=== PATIENT | female | born 1980 | race Caucasian/White ===

== ENCOUNTER 2018-08-19 18:09 | Emergency (ER) | payer OTHER ==
[~2018-08-19] VITALS: Ht 160 cm; Wt 71.0 kg
[2018-08-19] MEDS ORDERED: predniSONE 10 MG TABLET PO ONE (18:15)
--- NOTE | 2018-08-19 18:16 | ED.ADGEN ---
Adult General Chief Complaint Chief Complaint ".. It feels like when I have strep.... my throat is red and White pus pockets and these nodes my neck are swollen... I had strep a lot when I was a kid... And then feeling Bad the Last Couple Days.".." My joints ache... I chavo hurt all over.. even my muscle hurt..." HPI HPI Patient is a 38 year old female who presents with above hx and complaints of pharyngitis, myalgia, arthralgia, and malaise.. Patient does have swollen tonsils with crypts and white pus pockets. Does have bilateral anterior chain adenopathy. Patient denies any history of immunosuppression. No history of travel or specific ill contacts. Patient normally healthy. Has not had strep for years. Patient normally follows with Dr. Alonso. She didn't receive flu vaccination this past fall. Review of Systems Review of Systems Constitutional: History of fever or chills [] Eyes: Denies change in visual acuity, redness, or eye pain [] HENT: Denies nasal congestion. History of sore throat [] Respiratory: Denies cough or shortness of breath [] Cardiovascular: No additional information not addressed in HPI [] GI: Denies abdominal pain, nausea, vomiting, bloody stools or diarrhea [] : Denies dysuria or hematuria [] Musculoskeletal: Denies back pain or joint pain [] Integument: Denies rash or skin lesions [] Neurologic: Denies headache, focal weakness or sensory changes [] Endocrine: Denies polyuria or polydipsia [] All other systems were reviewed and found to be within normal limits, except as documented in this note. Family History Family History Noncontributory Current Medications Current Medications Current Medications Medications (Trade) Dose Ordered Sig/Dudley Start Time Stop Time Status Last Admin Dose Admin Prednisone (Prednisone) 10 mg STK-MED ONCE 08/19/18 18:18 08/19/18 18:20 DC Allergies Allergies Allergies Coded Allergies Type Severity Reaction Last Updated Verified No Known Drug Allergies 08/19/18 No Physical Exam Physical Exam Constitutional: , moderately acute distress, non-toxic appearance. [] HENT: Normocephalic, atraumatic, bilateral external ears normal, oropharynx moist, injected pharynx, pus pockets and swollen pillars, no oral exudates, nose swollen turbinates. Eyes: PERRLA, EOMI, conjunctiva normal, no discharge. [] Neck: Normal range of motion, enlarged lymph nodes anterior chain with tenderness, supple, no stridor. [] Cardiovascular:Heart rate regular rhythm, no murmur [] Lungs & Thorax: Bilateral breath sounds equal at apex on auscultation [] Abdomen: Bowel sounds normal, soft, no tenderness, no masses, no pulsatile masses. [] Skin: Warm, dry, no erythema, no rash. [] Back: No tenderness, no CVA tenderness. [] Extremities: No tenderness, no cyanosis, no clubbing, ROM intact, no edema. [] Neurologic: Alert and oriented X 3, normal motor function, normal sensory function, no focal deficits noted. [] Psychologic: Affect anxious, judgement normal, mood normal. [] Current Patient Data Vital Signs Vital Signs Date Time Temp Pulse Resp B/P (MAP) Pulse Ox O2 Delivery O2 Flow Rate FiO2 08/19/18 18:25 98.4 104 20 98 Room Air Lab Results Laboratory Tests Test 08/19/18 18:17 Influenza Type A (Rapid) Negative (NEGATIVE) Influenza Type B (Rapid) Negative (NEGATIVE) Group A Streptococcus Rapid Negative (NEGATIVE) EKG EKG [] Radiology/Procedures Radiology/Procedures [] Course & Med Decision Making Course & Med Decision Making Pertinent Labs and Imaging studies reviewed. (See chart for details). Gargle with Listerine 4 times a day. Tylenol and ibuprofen for discomfort. Follow-up primary care. Return if any concerns. For marked discomfort Vicoprofen up 4 x day. Push fluids. Get adequate rest. [] Final Impression Final Impression 1. Pharyngitis[]- viral 2. Viral syndrome Dragon Disclaimer Dragon Disclaimer This electronic medical record was generated, in whole or in part, using a voice recognition dictation system. Dragon Disclaimer This chart was dictated in whole or in part using Voice Recognition software in a busy, high-work load, and often noisy Emergency Department environment. It may contain unintended and wholly unrecognized errors or omissions. Discharge Summary Visit Information Final Diagnosis Problems Medical Problems: (1) Pharyngitis Status: Acute Brief Hospital Course Allergies Allergies Coded Allergies Type Severity Reaction Last Updated Verified No Known Drug Allergies 08/19/18 No Vital Signs Vital Signs Date Time Temp Pulse Resp B/P (MAP) Pulse Ox O2 Delivery O2 Flow Rate FiO2 08/19/18 18:25 98.4 104 20 98 Room Air Lab Results Laboratory Tests Test 08/19/18 18:17 Influenza Type A (Rapid) Negative (NEGATIVE) Influenza Type B (Rapid) Negative (NEGATIVE) Group A Streptococcus Rapid Negative (NEGATIVE) Brief Hospital Course Ms. Lynne is a 38 old female who presented with viral pharyngitis and syndrome. Discharge Information Condition at Discharge: Improved, Stable Disposition/Orders: D/C to Home Dischare Medications Current Medications Prednisone (Prednisone) 50 mg 1X ONCE PO Last administered on 08/19/18at 18:24; Admin Dose 50 MG; Start 08/19/18 at 18:15; Stop 08/19/18 at 18:20; Status DC Prednisone (Prednisone) 10 mg STK-MED ONCE .ROUTE ; Start 08/19/18 at 18:18; Stop 08/19/18 at 18:20; Status DC Active Scripts Active Hydrocodone-Ibuprofen 7.5-200 (Hydrocodone/Ibuprofen) 1 Each Tablet 1 Tab PO PRN Q6HRS PRN SAMPSON KEYS MD Aug 19, 2018 18:16
[2018-08-19] MEDS ORDERED: predniSONE 10 MG TABLET ONE (18:18)
[2018-08-19 18:25] VITALS: BP 112/61
[2018-08-19] MEDS ORDERED: HYDR-1179 PO (18:27)
[2018-08-19 19:03] LABS: INFLUENZA A PATIENT NEGATIVE (NEGATIVE); INFLUENZA B PATIENT NEGATIVE (NEGATIVE)
== END 2018-08-19 19:15 | disposition home or self-care (01) ==
LOC: ER 18:09
DX: B34.9 Viral infection, unspecified (principal); J02.8 Acute pharyngitis due to other specified organisms; R59.9 Enlarged lymph nodes, unspecified
CPT/HCPCS: 87070; 87804; 87880; 99283; J7512

== ENCOUNTER → 2018-08-22 | Outpatient (CLI) | payer OTHER ==
[2018-08-19 18:25] VITALS: BP 112/61
[~2018-08-22] MED LIST: AMOX500C PO; HYDR-1179 PO; PRED20TA PO
--- NOTE | 2018-08-23 08:08 | RAD ---
Examination: 3 views of the cervical spine HISTORY: History of cervicalgia, bilateral upper extremity numbness COMPARISON: None available FINDINGS: The cervical vertebral body heights are maintained. No evidence of listhesis. The facets are well aligned. The spinolaminar line is maintained. No evidence of prevertebral soft tissue swelling. Mild intervertebral disc height loss identified in the cervical spine. IMPRESSION: Mild degenerative changes cervical spine. If pain persists recommend MRI for further evaluation. Electronically signed by: Fahad Baum MD (08/23/2018 8:03 AM) [facility]
== END | disposition home or self-care (01) ==
LOC: EDSTATUS 08:42 → RAD 17:00 → DXRAD 17:00
PROVIDERS: ATTEND Family Medicine
DX: M47.892 Other spondylosis, cervical region (principal)
CPT/HCPCS: 72040; 99281

== ENCOUNTER 2018-10-03 06:51 | Emergency (ER) | payer OTHER ==
[~2018-10-03] VITALS: Ht 160 cm; Wt 68.0 kg
[~2018-10-03 06:51] MED LIST changes: -AMOX500C PO; -PRED20TA PO
[2018-10-03 06:59] VITALS: BP 143/60
[2018-10-03] MEDS ORDERED: AMOX500C PO (07:02)
[2018-10-03] MEDS ORDERED: PRED20TA PO (07:02)
--- NOTE | 2018-10-03 07:03 | PHYS DOC ---
Past History Past Medical History: Anxiety, Depression Past Surgical History: No Surgical History Alcohol Use: None Drug Use: None Adult General Chief Complaint Chief Complaint: SORE THROAT HPI HPI Patient is a 38-year-old female who presents to the emergency department for evaluation of a sore throat. she has had a mild fever as well, subjectively. She denies any shortness of breath, or voice changes. She has not had any significant cough or headache. There are no alleviating or exacerbating factors to her symptoms. Review of Systems Review of Systems Constitutional: Denies lethargy or chills [] Eyes: Denies change in visual acuity, redness, or eye pain [] HENT: Denies nasal congestion [] Respiratory: Denies cough or shortness of breath [] Neurologic: Denies headache, focal weakness or sensory changes [] Allergies Allergies Allergies Coded Allergies Type Severity Reaction Last Updated Verified No Known Drug Allergies 08/19/18 No Physical Exam Physical Exam PHYSICAL EXAM: CONSTITUTIONAL: Well developed, well nourished HEAD: normocephalic, atraumatic EENT: PERRL, EOMI. Conjunctivae normal color, sclerae non-icteric; moist mucous membranes.. The tonsils are enlarged bilaterally, with white exudate present bilaterally. There is no peritonsillar edema, or uvular deviation. The airways patent. NECK: Supple, non-tender; no meningismus. There is mildly tender submandibular lymphadenopathy. LUNGS: Lungs CTA, breathing even and unlabored. Normal air movement. HEART: Regular rate and rhythm, no murmur CHEST: No deformity; non-tender ABDOMEN: The abdomen is soft, and non-tender, no masses or bruits. There is no hepatosplenomegaly. EXTREM: Normal ROM; no deformity, no calf tenderness. Normal pulses palpable in all extremities. There is no pedal edema. SKIN: No rash; no diaphoresis NEURO: Alert; normal speech and cognition; CN's grossly intact; strength grossly intact without focal deficit. BACK: No CVA TTP. EKG EKG [] Radiology/Procedures Radiology/Procedures [] Course & Med Decision Making Course & Med Decision Making I discussed diagnosis with the patient, treatment, need for close follow-up, and return precautions. Dragon Disclaimer Dragon Disclaimer This electronic medical record was generated, in whole or in part, using a voice recognition dictation system. Departure Departure: Impression: Primary Impression: Pharyngitis Disposition: HOME, SELF-CARE Condition: STABLE Referrals: DANA DAMON MD (PCP) Patient Instructions: Viral and Bacterial Pharyngitis Scripts Prednisone (PREDNISONE) 20 Mg Tablet 40 MG PO DAILY for - for 5 Days, #10 TAB Prov: GELACIO WAGGONER MD 10/03/18 Amoxicillin (AMOXICILLIN) 500 Mg Capsule 1 CAP PO TID for ST, #30 CAP Prov: GELACIO WAGGONER MD 10/03/18 GELACIO WAGGONER MD Oct 03, 2018 07:03
== END 2018-10-03 07:21 | disposition home or self-care (01) ==
LOC: ER 06:51
DX: F41.9 Anxiety disorder, unspecified (principal); F32.9 Major depressive disorder, single episode, unspecified; R59.1 Generalized enlarged lymph nodes
CPT/HCPCS: 87070; 87880; 99283

== ENCOUNTER 2020-05-27 20:08 | Emergency (ER) | payer SELFPAY ==
[~2020-05-27 20:08] MED LIST changes: +AMOX500C PO; +PRED20TA PO
== END 2020-05-27 21:20 | disposition left against medical advice (07) ==
LOC: ER 20:08
DX: O46.92 Antepartum hemorrhage, unspecified, second trimester (principal); Z3A.00 Weeks of gestation of pregnancy not specified; Z53.21 Procedure and treatment not carried out due to patient leaving prior to being seen by health care provider

== ENCOUNTER 2021-12-05 06:56 | Emergency (ER) | payer OTHER ==
[~2021-12-05] VITALS: Ht 160 cm; Wt 71.0 kg
[2021-12-05 07:13] VITALS: BP 145/88
--- NOTE | 2021-12-05 07:14 | PHYS DOC ---
Past History Past Medical History: Depression Past Surgical History: Alcohol Use: None Drug Use: None General Adult EDM: Chief Complaint: CHEST PAIN HPI: HPI: 41-year-old female presents with chest pain. The patient woke up from sleep with central, sharp chest pain 8 out of 10 in intensity. It radiates through to her back and up into her neck. It is worse with deep breathing. It also hurts when she walks but if she bends forward it is less intense. The patient did not take any medications prior to arrival. She has no cardiac or pulmonary history. She is a cigarette smoker. She denies any falls or trauma. She does not get heartburn, but does admit that she ate just before going to bed last night. Her only medications are Vyvanse and Effexor. She denies fever or chills. Review of Systems: Review of Systems: Constitutional: Denies fever or chills Eyes: Denies change in visual acuity HENT: Denies nasal congestion or sore throat Respiratory: Denies cough or shortness of breath Cardiovascular: Chest pain GI: Denies abdominal pain, nausea, vomiting, bloody stools or diarrhea : Denies dysuria Musculoskeletal: Denies back pain or joint pain Integument: Denies rash Neurologic: Denies headache, focal weakness or sensory changes Endocrine: Denies polyuria or polydipsia Lymphatic: Denies swollen glands Psychiatric: Denies depression or anxiety Current Medications: Current Meds: Current Medications Medications (Trade) Dose Ordered Sig/Dudley Start Time Stop Time Status Last Admin Dose Admin Aspirin (Aspirin Chewable) 324 mg 1X ONCE 12/05/21 07:15 12/05/21 07:16 12/05/21 07:08 324 MG Famotidine (Pepcid Vial) 20 mg 1X ONCE 12/05/21 07:15 12/05/21 07:16 12/05/21 07:08 20 MG Allergies: Allergies: Allergies Coded Allergies Type Severity Reaction Last Updated Verified No Known Drug Allergies 08/19/18 No Physical Exam: PE: Constitutional: Well developed, well nourished, no acute distress, non-toxic appearance. [] HENT: Normocephalic, atraumatic, bilateral external ears normal, oropharynx moist, no oral exudates, nose normal. [] Eyes: PERRLA, EOMI, conjunctiva normal, no discharge. [] Neck: Normal range of motion, no tenderness, supple, no stridor. [] Cardiovascular: Heart rate 82, regular rhythm, no murmur [] Lungs & Thorax: Bilateral breath sounds clear to auscultation [] Abdomen: Bowel sounds normal, soft, no tenderness, no masses, no pulsatile masses. [] Skin: Warm, dry, no erythema, no rash. [] Back: No tenderness, no CVA tenderness. [] Extremities: No tenderness, no cyanosis, no clubbing, ROM intact, no edema. [] Neurologic: Alert and oriented X 3, normal motor function, normal sensory func tion, no focal deficits noted. [] Psychologic: Affect normal, judgement normal, mood anxious. [] EKG: EKG: Sinus rhythm, rate 82, normal axis, no ST elevation or depression. [] Radiology/Procedures: Radiology/Procedures: [] Impressions: EXAMINATION: Chest radiograph. VIEWS: 1 COMPARISON: None INDICATION:41 years, Female, chest pain. FINDINGS: Normal cardiomediastinal silhouette. Linear scarring versus atelectatic changes in the left lung base. No focal consolidation. No pleural effusion or pneumothorax. No acute osseous process. IMPRESSION: No acute cardiopulmonary process. Electronically signed by: Olivier Douglas MD (12/05/2021 7:26 AM) [id number] DICTATED AND SIGNED BY: OLIVIER DOUGLAS MD DATE: 12/05/21 0726 CC: CONNOR CORRIGAN DO; DELMIS MALHOTRA MD ~ Heart Score: C/O Chest Pain: Yes HEART Score for Chest Pain: HEART Score for Chest Pain Response (Comments) Value History Moderately Suspicious 1 ECG Normal 0 Age < 45 0 Risk Factors 1 or 2 Risk Factors 1 Total 2 Risk Factors: Risk Factors: DM, Current or recent (<one month) smoker, HTN, HLP, family history of CAD, obesity. Risk Scores: Score 0 - 3: 2.5% MACE over next 6 weeks - Discharge Home Score 4 - 6: 20.3% MACE over next 6 weeks - Admit for Clinical Observation Score 7 - 10: 72.7% MACE over next 6 weeks - Early Invasive Strategies Course & Med Decision Making: Course & Med Decision Making Pertinent Labs and Imaging studies reviewed. (See chart for details) I gave the patient 20 of Pepcid as well as a full-strength aspirin. Prior to giving the patient nitroglycerin she stated that the Pepcid made a remarkable d ifference and she was feeling much better. The patient's work-up is pending and the patient does not want to stay for results. She realizes that she is leaving AGAINST MEDICAL ADVICE. [] Arpan Disclaimer: Arpan Disclaimer: This electronic medical record was generated, in whole or in part, using a voice recognition dictation system. Departure Departure: Disposition: 07 LEFT AGAINST MEDICAL ADVICE Referrals: DELMIS MALHOTRA MD (PCP) CONNOR CORRIGAN DO December 05, 2021 07:14
[2021-12-05] MEDS ORDERED: NITROGLYCERIN SUBLINGUAL 0.4 MG BOTTLE OF 25. SL PRN (07:15)
[2021-12-05] MEDS ORDERED: FAMOTIDINE 20 MG/2 ML VIAL IVP ONE (07:15)
[2021-12-05] MEDS ORDERED: ASPIRIN CHEWABLE 81 MG TABLET. PO ONE (07:15)
--- NOTE | 2021-12-05 07:29 | RAD ---
EXAMINATION: Chest radiograph. VIEWS: 1 COMPARISON: None INDICATION:41 years, Female, chest pain. FINDINGS: Normal cardiomediastinal silhouette. Linear scarring versus atelectatic changes in the left lung base . No focal consolidation. No pleural effusion or pneumothorax. No acute osseous process. IMPRESSION: No acute cardiopulmonary process. Electronically signed by: Ashley Douglas MD (12/05/2021 7:26 AM) [id number]
[2021-12-05 07:33] LABS: BASO % 0 % (0-3); EOS # 0.1 x10^3/uL (0.0-0.7); EOS % 2 % (0-3); HEMATOCRIT 40.3 % (36.0-47.0); HEMOGLOBIN 13.6 g/dL (12.0-15.5); LYMPH # 2.1 x10^3/uL (1.0-4.8); LYMPH % 34 % (24-48); MEAN CORPUSCULAR HEMOGLOBIN 29 pg (25-35); MEAN CORPUSCULAR HGB CONC 34 g/dL (31-37); MEAN CORPUSCULAR VOLUME 86 fL (79-100); MONO # 0.6 x10^3/uL (0.0-1.1); MONO % 9 % (0-9); NEUT # 3.4 x10^3uL (1.8-7.7); NEUT % 55 % (31-73); PLATELET COUNT 285 x10^3/uL (140-400); RED BLOOD COUNT 4.68 x10^6/uL (3.50-5.40); WHITE BLOOD COUNT 6.1 x10^3/uL (4.0-11.0)
[2021-12-05 07:43] LABS: CALCIUM 8.8 mg/dL (8.5-10.1); CREATININE 0.8 mg/dL (0.6-1.0); GFR 78.3; POTASSIUM 3.8 mmol/L (3.5-5.1)
[2021-12-05 07:49] LABS: ALBUMIN 3.7 g/dL (3.4-5.0); ALBUMIN/GLOBULIN RATIO 1.3 (1.0-1.7); TOTAL BILIRUBIN 0.3 mg/dL (0.2-1.0); TOTAL PROTEIN 6.6 g/dL (6.4-8.2)
[2021-12-05] MEDS ORDERED: IBUP800T19 PO (23:34)
[2021-12-05] MEDS ORDERED: OMEP20TA63 PO (23:34)
[2021-12-05] MEDS ORDERED: HYDR-2155 PO (23:34)
== END 2021-12-05 08:10 | disposition left against medical advice (07) ==
LOC: ER 06:56
DX: R07.89 Other chest pain (principal); F32.9 Major depressive disorder, single episode, unspecified; F17.210 Nicotine dependence, cigarettes, uncomplicated
CPT/HCPCS: 36415; 71045; 80053; 84484; 85025; 93005; 96374; 99285; J3490

== ENCOUNTER 2021-12-05 21:52 | Emergency (ER) | payer OTHER ==
[~2021-12-05] VITALS: Ht 160 cm; Wt 71.0 kg
[2021-12-05] MEDS: ASPIRIN CHEWABLE 81 MG TABLET. PO ONE (22:18)
[2021-12-05] MEDS: IV NORMAL SALINE 1,000ML 1,000 ML IV ONE (22:22)
[2021-12-05] MEDS: LIDO:MAALOX 1:1 20 ML SINGLE DOSE. PO ONE (22:23)
[2021-12-05] MEDS: KETOROLAC 15 MG/ML VIAL. IVP ONE (22:23)
[2021-12-05] MEDS: ONDANSETRON PF 4 MG/2 ML VIAL. IVP ONE (22:23)
--- NOTE | 2021-12-05 22:24 | RAD ---
Exam: Chest one view INDICATION: Chest pain, pain TECHNIQUE: Frontal view of the chest Comparisons: 12/05/2021 FINDINGS: The cardiomediastinal silhouette and pulmonary vessels are within normal limits. The lung and pleural spaces are clear. IMPRESSION: No acute cardiopulmonary process. Electronically signed by: Tyrone Pierce MD (12/05/2021 10:21 PM) [facility]
[2021-12-05 22:30] LABS: BASO % 1 % (0-3); EOS # 0.1 x10^3/uL (0.0-0.7); EOS % 2 % (0-3); HEMATOCRIT 38.5 % (36.0-47.0); LYMPH # 2.3 x10^3/uL (1.0-4.8); LYMPH % 28 % (24-48); MEAN CORPUSCULAR HEMOGLOBIN 29 pg (25-35); MEAN CORPUSCULAR HGB CONC 34 g/dL (31-37); MEAN CORPUSCULAR VOLUME 87 fL (79-100); MONO # 0.8 x10^3/uL (0.0-1.1); MONO % 9 % (0-9); NEUT # 4.9 x10^3uL (1.8-7.7); NEUT % 60 % (31-73); PLATELET COUNT 251 x10^3/uL (140-400); RED BLOOD COUNT 4.44 x10^6/uL (3.50-5.40); RED CELL DISTRIBUTION WIDTH 13.2 % (11.5-14.5); WHITE BLOOD COUNT 8.2 x10^3/uL (4.0-11.0)
[2021-12-05 22:41] LABS: CREATININE 0.8 mg/dL (0.6-1.0); GFR 78.3; POTASSIUM 3.8 mmol/L (3.5-5.1)
[2021-12-05 22:54] LABS: ALBUMIN 3.5 g/dL (3.4-5.0); ALBUMIN/GLOBULIN RATIO 1.2 (1.0-1.7); TOTAL BILIRUBIN 0.2 mg/dL (0.2-1.0); TOTAL PROTEIN 6.4 g/dL (6.4-8.2)
--- NOTE | 2021-12-05 22:59 | PHYS DOC ---
Past History Past Medical History: Depression Past Surgical History: Alcohol Use: None Drug Use: None Adult General Chief Complaint Chief Complaint: CHEST PAIN HPI HPI Patient is a 41-year-old female presents emergency department for return of her chest pain that started 2 to 3 hours prior to arrival. She describes it as a sharp stabbing pain in the epigastrium and middle lower chest that is worse with deep breaths. She reportedly ate a cheeseburger right before her pain started and she did not have any recent exertion. She says she feels short of breath with the pain but no nausea vomiting or diaphoresis. Patient says that she has no history of diabetes hypertension high cholesterol smoking or family history of heart disease. She denies any prior stress test or other cardiac or stratification. She is in no acute distress with normal vital signs. Review of Systems Review of Systems Constitutional: Denies fever or chills [] Eyes: Denies change in visual acuity, redness, or eye pain [] HENT: Denies nasal congestion or sore throat [] Respiratory: Denies cough. + shortness of breath [] Cardiovascular: + CP [] GI: Denies abdominal pain, nausea, vomiting, bloody stools or diarrhea [] : Denies dysuria or hematuria [] Musculoskeletal: Denies back pain or joint pain [] Integument: Denies rash or skin lesions [] Neurologic: Denies headache, focal weakness or sensory changes [] All other systems were reviewed and found to be within normal limits, except as documented in this note. Current Medications Current Medications Current Medications Medications (Trade) Dose Ordered Sig/Dudley Start Time Stop Time Status Last Admin Dose Admin Aspirin (Aspirin Chewable) 324 mg 1X ONCE 12/05/21 23:00 12/05/21 23:01 Fentanyl Citrate (Fentanyl 2ml Vial) 75 mcg 1X ONCE 12/05/21 23:00 12/05/21 23:01 12/05/21 22:23 75 MCG Ketorolac Tromethamine (Toradol 15mg Vial) 15 mg 1X ONCE 12/05/21 23:00 12/05/21 23:01 12/05/21 22:23 15 MG Multi-Ingredient Mouthwash/Gargle (Gi Cocktail) 20 ml 1X ONCE 12/05/21 23:00 12/05/21 23:01 12/05/21 22:23 20 ML Ondansetron HCl (Zofran) 4 mg 1X ONCE 12/05/21 23:00 12/05/21 23:01 12/05/21 22:23 4 MG Sodium Chloride 1,000 ml @ 1,000 mls/hr 1X ONCE 12/05/21 23:00 12/05/21 23:59 12/05/21 22:22 1,000 MLS/HR Allergies Allergies Allergies Coded Allergies Type Severity Reaction Last Updated Verified No Known Drug Allergies 08/19/18 No Physical Exam Physical Exam Constitutional: Well developed, well nourished, no acute distress, non-toxic appearance. [] HENT: Normocephalic, atraumatic, bilateral external ears normal, oropharynx moist, no oral exudates, nose normal. [] Eyes: PERRLA, EOMI, conjunctiva normal, no discharge. [] Neck: Normal range of motion, no tenderness, supple, no stridor. [] Cardiovascular:Heart rate regular rhythm, no murmur [] Lungs & Thorax: Bilateral breath sounds clear to auscultation [] Abdomen: Bowel sounds normal, soft, positive epigastric tenderness to palpation with no rebound or guarding. Skin: Warm, dry, no erythema, no rash. [] Back: No tenderness, no CVA tenderness. [] Extremities: No tenderness, no cyanosis, no clubbing, ROM intact, no edema. [] Neurologic: Alert and oriented X 3, normal motor function, normal sensory function, no focal deficits noted. [] Current Patient Data Vital Signs Vital Signs Date Time Temp Pulse Resp B/P (MAP) Pulse Ox O2 Delivery O2 Flow Rate FiO2 12/05/21 21:56 97.9 85 22 128/89 (102) 100 Room Air Lab Results Laboratory Tests Test 12/05/21 22:05 White Blood Count 8.2 x10^3/uL (4.0-11.0) Red Blood Count 4.44 x10^6/uL (3.50-5.40) Hemoglobin 13.0 g/dL (12.0-15.5) Hematocrit 38.5 % (36.0-47.0) Mean Corpuscular Volume 87 fL (79-100) Mean Corpuscular Hemoglobin 29 pg (25-35) Mean Corpuscular Hemoglobin Concent 34 g/dL (31-37) Red Cell Distribution Width 13.2 % (11.5-14.5) Platelet Count 251 x10^3/uL (140-400) Neutrophils (%) (Auto) 60 % (31-73) Lymphocytes (%) (Auto) 28 % (24-48) Monocytes (%) (Auto) 9 % (0-9) Eosinophils (%) (Auto) 2 % (0-3) Basophils (%) (Auto) 1 % (0-3) Neutrophils # (Auto) 4.9 x10^3uL (1.8-7.7) Lymphocytes # (Auto) 2.3 x10^3/uL (1.0-4.8) Monocytes # (Auto) 0.8 x10^3/uL (0.0-1.1) Eosinophils # (Auto) 0.1 x10^3/uL (0.0-0.7) Basophils # (Auto) 0.0 x10^3/uL (0.0-0.2) D-Dimer (Belén) 0.31 mg/L (0.00-0.50) Sodium Level 142 mmol/L (136-145) Potassium Level 3.8 mmol/L (3.5-5.1) Chloride Level 107 mmol/L (98-107) Carbon Dioxide Level 28 mmol/L (21-32) Anion Gap 7 (6-14) Blood Urea Nitrogen 17 mg/dL (7-20) Creatinine 0.8 mg/dL (0.6-1.0) Estimated GFR (Cockcroft-Gault) 78.3 BUN/Creatinine Ratio 21 (6-20) H Glucose Level 90 mg/dL (70-99) Calcium Level 9.0 mg/dL (8.5-10.1) Total Bilirubin 0.2 mg/dL (0.2-1.0) Aspartate Amino Transferase (AST) 18 U/L (15-37) Alanine Aminotransferase (ALT) 21 U/L (14-59) Alkaline Phosphatase 114 U/L (46-116) Troponin I High Sensitivity 13 ng/L (4-50) NT-Nic-Z-Type Natriuretic Peptide 85 pg/mL (0-124) Total Protein 6.4 g/dL (6.4-8.2) Albumin 3.5 g/dL (3.4-5.0) Albumin/Globulin Ratio 1.2 (1.0-1.7) Lipase 156 U/L (73-393) Ethyl Alcohol Level < 10 mg/dL (0-10) EKG EKG [] Radiology/Procedures Radiology/Procedures [] Heart Score C/O Chest Pain: Yes HEART Score for Chest Pain: HEART Score for Chest Pain Response (Comments) Value History Slighlty/Non-Suspicious 0 ECG Normal 0 Age < 45 0 Risk Factors No Risk Factors 0 Troponin < Normal Limit 0 Total 0 Risk Factors: Risk Factors: DM, Current or recent (<one month) smoker, HTN, HLP, family history of CAD, obesity. Risk Scores: Risk Factors: DM, Current or recent (<one month) smoker, HTN, HLP, family history of CAD, obesity. Course & Med Decision Making Course & Med Decision Making Patient's work-up is negative for acute process. Patient's pain resolved completely the emergency department and she continues to say that it was sharp stabbing pain whenever she takes a deep breath so I suspect that this is most likely pleurisy although she has some components of possible gastritis or ulcer pathology as well. I told her I cannot completely exclude gallbladder pathology or coronary artery disease in the emergency department and recommended that given this is her second visit to the emergency department in the same day that we have her transferred to another facility where they can do further testing on her. There is no available beds here at [facility] so I told her we would have to transfer her to another hospital to get further testing and treatment. Patient refused stating that she does not want to stay in the hospital and rather have treatment as an outpatient and follow with her primary care doctor as an outpatient. Patient verbalized understanding of why I wanted to admit her to the hospital excepted the risks of and disability by leaving against my recommendations. I will prescribe her supportive medications and told her not to exert herself and that she can come back to emergency department anytime with worsening pain shortness of breath or other general concerns. Patient aware and agreeable with plan for discharge and verbalized understanding of the above instructions. Dragon Disclaimer Dragon Disclaimer This electronic medical record was generated, in whole or in part, using a voice recognition dictation system. Departure Departure: Impression: Primary Impression: Pleuritic chest pain Disposition: HOME / SELF CARE / HOMELESS Condition: STABLE Referrals: DELMIS MALHOTRA MD (PCP) Patient Instructions: Pleurisy Scripts Omeprazole Magnesium (PRILOSEC OTC) 20 Mg Tablet. 1 TAB PO DAILY for 30 Days, #30 TAB 0 Refills Prov: GELACIO PERKINS DO 12/05/21 Ibuprofen (IBUPROFEN) 800 Mg Tablet 1 TAB PO TID, #21 TAB Prov: GELACIO PERKINS DO 12/05/21 Hydrocodone Bit/Acetaminophen (HYDROCODONE-APAP 5-325 ) 1 Each Tablet 1 TAB PO PRN Q6HRS PRN for PAIN, #14 TAB 0 Refills Prov: GELACIO PERKINS DO 12/05/21 GELACIO PERKINS DO December 05, 2021 22:59
[2021-12-05 23:29] LABS: BARBITURATES NEG (NEG); BENZODIAZEPINES NEG (NEG); CANNABINOIDS NEG (NEG); COCAINE NEG (NEG); METHADONE NEG (NEG); OPIATES NEG (NEG); PHENCYCLIDINE NEG (NEG)
[2021-12-05] MEDS ORDERED: HYDR-2155 PO (23:34)
[2021-12-05] MEDS ORDERED: OMEP20TA63 PO (23:34)
[2021-12-05] MEDS ORDERED: IBUP800T19 PO (23:34)
[2021-12-05 23:36] LABS: AMPHETAMINE/METHAMPHETAMINE POS (NEG)
[2021-12-05 23:41] VITALS: BP 116/71
[2021-12-05] MEDS ORDERED: HYDROcodone/APAP 5/325MG 1 TAB TABLET PO ONE (23:45)
== END 2021-12-05 23:41 | disposition home or self-care (01) ==
LOC: ER 21:52
DX: R07.81 Pleurodynia (principal); R10.13 Epigastric pain; R06.02 Shortness of breath
CPT/HCPCS: 36415; 71045; 80053; 80307; 83690; 83880; 84484; 85025; 85379; 96361; 96374; 96375; 99284; G0480; J1885; J2405; J3010; J7030

== ENCOUNTER 2021-12-06 11:17 | Emergency (ER) | payer OTHER ==
[~2021-12-06] VITALS: Ht 160 cm; Wt 71.0 kg
[~2021-12-06 11:17] MED LIST changes: +HYDR-2155 PO; +IBUP800T19 PO; +OMEP20TA63 PO
--- NOTE | 2021-12-06 11:51 | PHYS DOC ---
Past History Past Medical History: Depression (REGINA PARRA APRN) Past Surgical History: (REGINA PARRA APRN) Alcohol Use: None Drug Use: None (REGINA PARRA APRN) General Adult EDM: Chief Complaint: CHEST PAIN HPI: HPI: Patient is a 41-year-old female who presents to the emergency department for generalized chest pain that started yesterday morning. She is also reporting shortness of breath. She rates the pain 10 out of 10. It does not radiate. It is sharp and worse with deep inspiration. Patient denies any nausea, vomiting. She is a current smoker. Patient was seen in this emergency department yesterday morning for similar complaints but her pain was relieved after Pepcid and left AGAINST MEDICAL ADVICE. Patient also returned last night for chest pain and it was relieved with pain medication she was diagnosed with pleurisy. (REGINA PARRA APRN) Review of Systems: Review of Systems: Respiratory: See HPI Cardiovascular: See HPI GI: See HPI Musculoskeletal: See HPI (REGINA PARRA APRN) Allergies: Allergies: Allergies Coded Allergies Type Severity Reaction Last Updated Verified No Known Drug Allergies 08/19/18 No (REGINA PARRA APRN) Physical Exam: PE: Constitutional: Well developed, well nourished, no acute distress, non-toxic appearance. [] HENT: Normocephalic, atraumatic, bilateral external ears normal, oropharynx moist, no oral exudates, nose normal. [] Eyes: PERRL, EOMI, conjunctiva normal, no discharge. [] Neck: Normal range of motion, no tenderness, supple, no stridor. [] Cardiovascular:Heart rate regular rhythm, no murmur [] Lungs & Thorax: Bilateral breath sounds clear to auscultation [] Abdomen: Bowel sounds normal, soft, no tenderness, no masses, no pulsatile masses. [] Skin: Warm, dry, no erythema, no rash. [] Back: No tenderness, normal range of motion Extremities: No tenderness, no cyanosis, no clubbing, ROM intact, no edema. [] Neurologic: Alert and oriented X 3, normal motor function, normal sensory function, no focal deficits noted. [] Psychologic: Affect normal, judgement normal, mood normal. [] (REGINA PARRA APRN) Current Patient Data: Labs: Laboratory Tests Test 12/06/21 11:38 White Blood Count 8.5 x10^3/uL Red Blood Count 4.25 x10^6/uL Hemoglobin 12.5 g/dL Hematocrit 36.8 % Mean Corpuscular Volume 87 fL Mean Corpuscular Hemoglobin 29 pg Mean Corpuscular Hemoglobin Concent 34 g/dL Red Cell Distribution Width 13.0 % Platelet Count 213 x10^3/uL Neutrophils (%) (Auto) 74 % Lymphocytes (%) (Auto) 15 % Monocytes (%) (Auto) 11 % Eosinophils (%) (Auto) 1 % Basophils (%) (Auto) 0 % Neutrophils # (Auto) 6.3 x10^3uL Lymphocytes # (Auto) 1.2 x10^3/uL Monocytes # (Auto) 0.9 x10^3/uL Eosinophils # (Auto) 0.0 x10^3/uL Basophils # (Auto) 0.0 x10^3/uL Sodium Level 137 mmol/L Potassium Level 4.3 mmol/L Chloride Level 104 mmol/L Carbon Dioxide Level 28 mmol/L Anion Gap 5 Blood Urea Nitrogen 16 mg/dL Creatinine 0.7 mg/dL Estimated GFR (Cockcroft-Gault) 91.3 BUN/Creatinine Ratio 23 Glucose Level 120 mg/dL Calcium Level 8.4 mg/dL Total Bilirubin 0.5 mg/dL Aspartate Amino Transf (AST/SGOT) 23 U/L Alanine Aminotransferase (ALT/SGPT) 24 U/L Alkaline Phosphatase 102 U/L Troponin I High Sensitivity 74 ng/L Total Protein 6.3 g/dL Albumin 3.4 g/dL Albumin/Globulin Ratio 1.2 Current Medications Medications (Trade) Dose Ordered Sig/Dudley Route PRN Reason Start Time Stop Time Status Last Admin Dose Admin Sodium Chloride 1,000 ml @ 1,000 mls/hr 1X ONCE IV 12/06/21 11:45 12/06/21 12:44 12/06/21 12:09 Morphine Sulfate (Morphine 2mg Syringe) 2 mg 1X ONCE IV 12/06/21 12:00 12/06/21 12:01 DC 12/06/21 12:10 Vital Signs: Vital Signs Date Time Temp Pulse Resp B/P (MAP) Pulse Ox O2 Delivery O2 Flow Rate FiO2 12/06/21 11:24 98.1 86 24 136/86 (103) 100 Room Air (REGINA PARRA APRN) EKG: EKG: EKG performed by ER staff at 1121 shows sinus rhythm with some J-point elevation in V2 and V3, no STEMI read by Dr. Corrigan at 1132 [] (REGINA PARRA APRN) Radiology/Procedures: Radiology/Procedures: []PROCEDURE: PORTABLE CHEST 1V EXAMINATION: XR CHEST 1V CLINICAL HISTORY: Chest pain. EXAM DATE/TIME: 12/06/2021 11:36 AM COMPARISON: 12/05/2021 FINDINGS: Lines, Tubes, and Devices: None. Cardiomediastinal Silhouette: Within normal limits. Lungs and Pleura: Pulmonary hypoexpansion with mild bibasilar opacities, greater on the right. No evidence of pleural effusion or pneumothorax. Bones and Soft Tissues: No acute osseous abnormality. IMPRESSION: Mild bibasilar opacities, possibly subsegmental atelectasis and/or scarring. Electronically signed by: Nathan Iraheta DO (12/06/2021 11:57 AM) [facility] DICTATED AND SIGNED BY: NATHAN IRHAETA DO DATE: 12/06/21 1156 CC: REGINA PARRA APRN; DELMIS MALHOTRA MD ~ (REGINA PARRA APRN) Heart Score: C/O Chest Pain: Yes HEART Score for Chest Pain: HEART Score for Chest Pain Response (Comments) Value History Slighlty/Non-Suspicious 0 ECG Nonspecific Repolarizatio 1 Age < 45 0 Risk Factors 1 or 2 Risk Factors 1 Troponin >1-<3x Normal Limit 1 Total 3 Risk Factors: Risk Factors: DM, Current or recent (<one month) smoker, HTN, HLP, family history of CAD, obesity. Risk Scores: Score 0 - 3: 2.5% MACE over next 6 weeks - Discharge Home Score 4 - 6: 20.3% MACE over next 6 weeks - Admit for Clinical Observation Score 7 - 10: 72.7% MACE over next 6 weeks - Early Invasive Strategies (REGINA PARRA APRN) Course & Med Decision Making: Course & Med Decision Making Pertinent Labs and Imaging studies reviewed. (See chart for details) Patient presents to the emergency department for chest pain and shortness of breath. Patient reports that she was seen here yesterday morning for chest pain. At that time she left AGAINST MEDICAL ADVICE after receiving Pepcid and pain resolution. Patient was also seen and evaluated for chest pain last night and was given Vicodin and pain resolved. Pain does sound pleuritic in nature as it is worse with deep inspiration. ER consists of blood work including troponin and D-dimer, chest x-ray, EKG. Patient treated with IV fluids and pain medication. Since troponin is elevated at 74, patient's heart score is 3. I discussed patient's case with Dr. Olguin and he was consulted. Patient will be given dose of Lovenox in the ER. Patient does have an elevated D-dimer due to the national shortage of contrast, COVID testing and a VQ scan was ordered. Chest x-ray does show bilateral opacities in the lower lobes which could be scarring versus infiltrates therefore patient was treated with antibiotics. I discussed patient's case with Dr. Phoenix at [facility] and he agreed to admit the patient under his services. I discussed patient's findings with her and she is agreeable to admission and transfer. (REGINA PARRA APRN) Dragon Disclaimer: Dragon Disclaimer: This electronic medical record was generated, in whole or in part, using a voice recognition dictation system. (REGINA PARRA APRN) Attending Co-Sign The patient was seen and interviewed as well as examined at the bedside. The chart was reviewed. The case was discussed. Agree with the plan of care. (CONNOR CORRIGAN DO) Departure Departure: Impression: Primary Impression: NSTEMI (non-ST elevated myocardial infarction) Disposition: 02 SHORT TERM HOSPITAL Condition: STABLE Referrals: DELMIS MALHOTRA MD (PCP) REGINA PARRA APRN December 06, 2021 11:51 CONNOR CORRIGAN DO December 07, 2021 11:31
[2021-12-06 11:57] LABS: BASO % 0 % (0-3); EOS % 1 % (0-3); HEMATOCRIT 36.8 % (36.0-47.0); HEMOGLOBIN 12.5 g/dL (12.0-15.5); LYMPH # 1.2 x10^3/uL (1.0-4.8); LYMPH % 15 % (24-48); MEAN CORPUSCULAR HEMOGLOBIN 29 pg (25-35); MEAN CORPUSCULAR HGB CONC 34 g/dL (31-37); MEAN CORPUSCULAR VOLUME 87 fL (79-100); MONO # 0.9 x10^3/uL (0.0-1.1); MONO % 11 % (0-9); NEUT # 6.3 x10^3uL (1.8-7.7); NEUT % 74 % (31-73); PLATELET COUNT 213 x10^3/uL (140-400); RED BLOOD COUNT 4.25 x10^6/uL (3.50-5.40); WHITE BLOOD COUNT 8.5 x10^3/uL (4.0-11.0)
--- NOTE | 2021-12-06 11:59 | RAD ---
EXAMINATION: XR CHEST 1V CLINICAL HISTORY: Chest pain. EXAM DATE/TIME: 12/06/2021 11:36 AM COMPARISON: 12/05/2021 FINDINGS: Lines, Tubes, and Devices: None. Cardiomediastinal Silhouette: Within normal limits. Lungs and Pleura: Pulmonary hypoexpansion with mild bibasilar opacities, greater on the right. No hilda dence of pleural effusion or pneumothorax. Bones and Soft Tissues: No acute osseous abnormality. IMPRESSION: Mild bibasilar opacities, possibly subsegmental atelectasis and/or scarring. Electronically signed by: Nathan Yu DO (12/06/2021 11:57 AM) JEANINE
[2021-12-06 12:04] LABS: CALCIUM 8.4 mg/dL (8.5-10.1); CREATININE 0.7 mg/dL (0.6-1.0); GFR 91.3; POTASSIUM 4.3 mmol/L (3.5-5.1)
[2021-12-06] MEDS: IV NORMAL SALINE 1,000ML 1,000 ML IV ONE (12:09)
[2021-12-06] MEDS: MORPHINE SULFATE 2 MG/ML DISP.SYRIN. IV ONE ×3 (12:10→18:06)
[2021-12-06 12:12] LABS: ALBUMIN 3.4 g/dL (3.4-5.0); ALBUMIN/GLOBULIN RATIO 1.2 (1.0-1.7); TOTAL BILIRUBIN 0.5 mg/dL (0.2-1.0); TOTAL PROTEIN 6.3 g/dL (6.4-8.2)
[2021-12-06] MEDS ORDERED: IV DEXTROSE 5% 250 ML IV ONE ×2 (12:53→12:59)
[2021-12-06] MEDS ORDERED: AZITHROMYCIN 500 MG VIAL. IV ONE ×2 (12:53→12:59)
[2021-12-06] MEDS: ASPIRIN CHEWABLE 81 MG TABLET. PO ONE (13:05)
[2021-12-06] MEDS: AZITHROMYCIN 500 MG in IV DEXTROSE 5% 250 ML IV ONE (13:05)
[2021-12-06] MEDS: ENOXAPARIN ** NOTE DOSE ** SYRINGE SQ ONE (13:06)
[2021-12-06] MEDS: ONDANSETRON PF 4 MG/2 ML VIAL. IVP ONE (14:00)
[2021-12-06] MEDS: NITROGLYCERIN SUBLINGUAL 0.4 MG BOTTLE OF 25. SL PRN (14:05)
[2021-12-06] MEDS ORDERED: IV NORMAL SALINE 50ML 50 ML ONE (14:39)
[2021-12-06] MEDS ORDERED: cefTRIAXone SODIUM 1 GM VIAL ONE (14:39)
[2021-12-06 14:46] LABS: CLARITY,URINE CLEAR; COLOR,URINE YELLOW; GLUCOSE,URINE NEG (NEG); NITRITE,URINE NEG (NEG); UROBILINOGEN,URINE 0.2 mg/dL (0.2 mg/dL)
[2021-12-06 14:47] LABS: BACTERIA,URINE 0 /HPF (0-FEW); RBC,URINE OCC /HPF (0-2); SQUAMOUS EPITHELIAL CELL,UR MOD /LPF; WBC,URINE 0 /HPF (0-4)
[2021-12-06 18:00] VITALS: BP 107/72
== END 2021-12-06 18:28 | disposition short-term general hospital (02) ==
LOC: ER 11:17
DX: I21.4 Non-ST elevation (NSTEMI) myocardial infarction (principal); Z20.822 Contact with and (suspected) exposure to COVID-19
CPT/HCPCS: 36415; 71045; 80053; 81001; 84484; 85025; 85379; 87426; 93005; 96361; 96365; 96366; 96367; 96372; 96375; 96376; 99285; C9803; J0456; J0696; J1650; J2270; J2405; J7030; U0003